=== PATIENT | male | born 1940 | race Caucasian/White ===

== ENCOUNTER → 2018-02-24 | Outpatient (CLI) | payer OTHER ==
[~2018-02-24] MED LIST: ACCUNEB SO1.25 MG/1 PO; ALDACTONE50 MG PO; ARICEPT 5 MG TAB5 MG PO; ASPIR 8181 MG PO; COLACE100 MG PO; CRESTOR10 MG PO; DUONEB 2.5-0.5 M3 ML INH; EXELON1 EACH TRANSDERM; FINASTERIDE5 MG PO; FLOMAX0.4 MG PO; IRON325 PO; LASIX 20 MG TAB20 MG PO; LEVAQUIN 500 M500 M2 PO; LEVAQUIN 750 M750 MG PO; NAMENDA 10 MG T10 MG PO; NAMENDA XR7 MG PO; PANTOPRAZOLE SO40 M1 PO; PREDNISONE 10 M10 MG PO; ROCALTROL0.25 MCG PO; SENOKOT-S1 TA1 PO; SIMVASTATIN40 MG PO; SPIRIVA INH; TRICOR145 MG PO; VITAMIN B-12500 MCG PO
== END ==
LOC: M.RAD 16:32
DX: J98.11 Atelectasis (principal); J44.1 Chronic obstructive pulmonary disease with (acute) exacerbation